=== PATIENT | male | born 2005 | race Caucasian/White ===

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

== ENCOUNTER 2023-02-14 22:41 | Emergency (ER) | payer BC, SELFPAY ==
[2023-02-14 22:49] VITALS: BP 157/84; PULSE 73; RESP 12; TEMP 37.7; O2SAT 95; BMI 22.0
--- NOTE | 2023-02-14 23:30 | ED.EAR ---
HPI - Ear Problem General Time Seen by Provider: 23:30 Date Seen: 02/14/23 Chief complaint: Ear/Nose/Throat Problem Stated complaint: Ear Infection L side Time Seen by Provider: 02/14/23 23:30 Source: patient and family Mode of arrival: ambulatory Limitations: no limitations History of Present Illness HPI Narrative: 17-year-old male who comes in with ear pain. Patient was diagnosed with otitis externa yesterday, started on Cortisporin drops. Presents today with continued pain. Does have drainage from the ear, now having some pain behind the ear as well. Denies any nausea or vomiting, taking ibuprofen for pain. Related Data Previous Rx's Medication Instructions Recorded [id number]-[id number]-[id number] 3.5 4 drp otic (ear) TID 10 days #10 mL 02/13/23 mg/mL-10,000 unit/mL-1 % ear solution Allergies Allergy/AdvReac Type Severity Reaction Status Date / Time No Known Drug Allergies Allergy Verified 02/13/23 13:09 Exam Narrative: Exam Narrative: General: Well-developed and well-nourished, no acute distress Head: Atraumatic and normocephalic Eyes: Pupils are equal reactive, extraocular motions intact, conjunctiva clear ENT: External nose and ears are normal, posterior pharynx without erythema or exudate. Tenderness and swelling of the left external auditory canal. Pain with pressure on the tragus. Some cervical adenopathy on the left, no swelling or induration over the mastoid. Neck: No midline cervical tenderness, full spontaneous range of motion the neck, trachea midline, no adenopathy Heart: Regular rate and rhythm no murmurs or thrills Lungs: Clear to auscultation bilaterally without wheezes or crackles Abdomen: Soft, nontender, nondistended with active bowel sounds Musculoskeletal: No tenderness, deformity, or edema Neurologic: Awake, alert, and oriented x3, no gross focal neurologic deficits, cranial nerves intact as tested Psych: Mood and affect are appropriate Skin: No rashes Const: Vital Signs, click to edit/add: Vital Signs - 24 hr 02/14/23 22:49 Temperature 99.8 F H Pulse Rate [Pulse Oximeter] 73 Respiratory Rate 12 Blood Pressure [Ri ght Upper Arm] 157/84 H Pulse Oximetry 95 Oxygen Delivery Me thod Room Air Course Course Hospital Course: Patient seen examined, prior records reviewed. Patient presents today with left ear pain, was seen in urgent care for this and prescribed Cortisporin drops but having worsening pain. On exam here, there is debris in swelling in the external auditory canal on the left, visualized tympanic membrane is pearly bell. There is some cervical adenopathy on the left side, no redness, induration, or swelling over the mastoid to suggest acute mastoiditis. Continue ear drops and patient will be started on ciprofloxacin. Vital Signs Vital signs: Initial Vital Signs Temperature 99.8 F H 02/14/23 22:49 Temperature Source Temporal Artery Scan 02/14/23 22:49 Pulse Rate 73 02/14/23 22:49 Pulse Rhythm Regular 02/14/23 22:49 Respiratory Rate 12 02/14/23 22:49 Blood Pressure 157/84 H 02/14/23 22:49 Blood Pressure Mean 108 H 02/14/23 22:49 Blood Pressure Position Sitting 02/14/23 22:49 Pulse Oximetry 95 02/14/23 22:49 Oxygen Delivery Method Room Air 02/14/23 22:49 Vital Signs Temperature 99.8 F H 02/14/23 22:49 Pulse Rate 73 02/14/23 22:49 Respiratory Rate 12 02/14/23 22:49 Blood Pressure 157/84 H 02/14/23 22:49 Pulse Oximetry 95 02/14/23 22:49 Oxygen Delivery Method Room Air 02/14/23 22:49 Temperature 99.8 F H 02/14/23 22:49 Pulse Rate 73 02/14/23 22:49 Respiratory Rate 12 02/14/23 22:49 Blood Pressure 157/84 H 02/14/23 22:49 Pulse Oximetry 95 02/14/23 22:49 Oxygen Delivery Method Room Air 02/14/23 22:49 Discharge Plan Discharge Clinical Impression: Otitis externa Patient Disposition: Home w/ Parent or Adult Condition: Stable Instructions: Swimmer's Ear (ED) Additional Instructions: Continue previously prescribed ear drops. Start oral antibiotics as well. Follow-up with Dr. Wells in 3-4 days if not improving Prescriptions: No Action [id number]-tsvereppc-HO 3.5-10,000-1 mg/mL-unit/mL-% solution 4 drp otic (ear) TID 10 Days Qty: 10 0RF Follow Up/Referrals: Shen,Michael, MD [Primary Care Provider] - Larry Wells MD [Staff Physician] - Stand Alone Forms: [employer] Info Instructions
[2023-02-15] VITALS: TEMP 36.7
[2023-02-15] MEDS: KETOROLAC 30 MG/ML inj IM
[2023-02-15 00:13] VITALS: BP 132/74; PULSE 75; RESP 16; TEMP 36.7; O2SAT 95
[2023-02-15 00:14] VITALS: BP 132/74; PULSE 75; RESP 16; TEMP 36.7
== END 2023-02-15 00:14 | disposition home or self-care (01) ==
PROVIDERS: Emergency Provider Family Medicine; PCP Family Medicine
DX: H60.92 Unspecified otitis externa, left ear (principal)
CPT/HCPCS: 96372; 99283; 99284; J1885